=== PATIENT | female | born 1975 | race Caucasian/White ===

== ENCOUNTER 2016-12-06 21:44 | Inpatient (IN) | payer BC, OTHER ==
[2016-12-06 23:29] LABS: Hematocrit 40 % (35-47); Hemoglobin 13.2 g/dl (12.0-16.0); Mean Corpuscular HGB Conc 33 g/dl (31-36); Mean Corpuscular Hemoglobin 28 pg (27-31); Mean Corpuscular Volume 85 fL (80-97); Mean Platelet Volume 8 um3 (7.4-10.4); Red Blood Count 4.71 10^6/ul (4.0-5.4); Red Cell Distribution Width 15 % (10.5-15); White Blood Count 8.5 10^3/ul (3.5-10.8)
[2016-12-06 23:36] LABS: Urine Bacteria 1+ (Absent); Urine Bilirubin Negative (Negative); Urine Glucose Negative (Negative); Urine Nitrite Positive (Negative)
[2016-12-06 23:38] LABS: ALT 13 U/L (7-52); AST 20 U/L (13-39); Alkaline Phosphatase 85 U/L (34-104); Anion Gap 5 mmol/L (2-11); BUN/Creatinine Ratio 11.4 (8-20); Blood Urea Nitrogen 8 mg/dL (6-24); CO2 Carbon Dioxide 28 mmol/L (22-32); Calcium 9.4 mg/dL (8.6-10.3); Chloride 102 mmol/L (101-111); EGFR African American 117.5 (>60); EGFR Non-African American 91.3 (>60); Globulin 3.4 g/dL (2-4); Glucose 100 mg/dL (70-100); Potassium 4.5 mmol/L (3.5-5.0); Sodium 135 mmol/L (133-145); Total Protein 7.4 g/dL (6.4-8.9)
[2016-12-06 23:44] LABS: Acetaminophen < 15 mcg/mL; Alcohol < 10 mg/dL (<10); Salicylate < 2.50 mg/dL (<30)
[2016-12-06 23:46] LABS: Benzodiazepine Urine Screen None Detected (None Detect)
[2016-12-07] MEDS ORDERED: Al Hydrox/Mg Hydrox/Simet LIQ* 30 ML UDC PO PRN (07:43)
[2016-12-07] MEDS: Vitamin THERAPEUTIC TAB PO SCH (08:39)
[2016-12-07 14:19] LABS: Iron 57 ug/dL (50-212)
[2016-12-07] MEDS: Sertraline* 50 MG TAB PO SCH (15:40)
[2016-12-07 20:49] LABS: Vitamin B12 366 pg/mL (180-914)
[2016-12-07] MEDS ORDERED: traZODone TAB* 50 MG TAB PO SCH (21:00)
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
[2016-12-08] MEDS: Acetaminophen TAB* 325 MG PO PRN ×2 (04:42→18:30)
[2016-12-08] MEDS: Vitamin THERAPEUTIC TAB PO SCH (13:24)
[2016-12-08] MEDS: Sertraline* 50 MG TAB PO SCH (13:24)
--- NOTE | 2016-12-08 14:30 | PN ---
Subjective - Subjective Service Type: 04342 Hosp care 15 min low complexity Subjective: Patient continues to present as dysphoric and tearful. She reports poor concentration and low energy. She reports poor sleep last night due to physical complaints that awakened her. She describes headache, generalized neuropathic pain, nausea. She states that this was a typical episode and similar to what she has been experiencing. Patient reports anxiety is troublesome, especially at home. She reports she and her had a good visit over lunch and that he is supportive. She states he is generally supportive but also indifferent. She states they often argue at home about her need to clean and organize the home. Pamela endorses poor communication skills between the two of them. Objective - Appearance Appearance: Well Developed/Nourished, Other Dysmorphic Features: Yes Hygiene: Normal Grooming: Well Kept - Behavior Psychomotor Activities: Abnormal-Decreased - psychomotor retardation Exhibits Abnormal Movement: Yes - Attitude and Relatedness Attitude and Relatedness: Cooperative Eye Contact: Good - Speech Quality: Unpressured Latencies: Normal Quantity: Appropriate - Mood Patient's Decription of Mood: "Sad" - Affect Observed Affect: Depressed Affect Consistent with: Dysphoria - Thought Process Patient's Thought Process: Coherent, Goal Directed Thought Content: No Passive Wish, No Suicidal Planning, No Homicidal Ideation, No Paranoid Ideation - Sensorium Experiencing Hallucinations: No, Sensorium is Clear Type of Hallucinations: Visual: No, Auditory: No, Command: No - Level of Consciousness Level of Consciousness: Alert Orientation: Yes Intact, Yes Orientated to Time, Yes Orientated to Place, Yes Orientated to Person - Impulse Control Impulse Control: Intact - Insight and Judgement Insight and Judgement: Fair - Group Participation Particating in Group Activities: Yes - Medication Management Medication Management Adherence: Yes Assessment - Assessment Merits Inpatient Hospitalization: For Immediate Safety, To Initiate Treatment, For Ongoing Evaluation, For Discharge Planning Inpatient DSM-IV Dx: Major depressive d/o, moderate, recurrent with anxious distress Clinical Impression: Pamela is a 41yo female who presented to the ED with c/o increasingly depressed mood and recent parasuicidal behavior. She is agreeable to suggested medication changes and participating in unit programming. Will assess for effect and continue to monitor for mood and thought content. She is agreeable to referrals to outpatient services. Plan - Plan Treatment Plan: Name: PAMELA BROOKS Birthdate: 1975 [id number] Will increase sertraline to 100mg and add vit D supplement to target depressed mood. Will add gabapentin 100mg BID to target anxiety and diffuse neuropathic pain. Will change trazodone to prn for insomnia only. Continue supportive milieu and individual and group therapy. Decrease safety checks to q30 min and allow staff pass. Discharge planning to include individual and couples therapy sessions. Continued Medication Management: Different Medication Medications: Current Medications Acetaminophen (Tylenol Tab*) 650 mg PO Q4H PRN PRN Reason: PAIN or TEMP > 101 F Last Admin: 12/08/16 04:42 Dose: 650 mg Al Hydrox/Mg Hydrox/Simethicone (Maalox Plus*) 30 ml PO Q4H PRN PRN Reason: INDIGESTION Cholecalciferol (Vitamin D Tab*) 1,000 units PO DAILY [facility] Gabapentin (Neurontin Cap(*)) 100 mg PO BID KAPIL Multivitamins (Theragran Tab*) 1 tab PO DAILY KAPIL Last Admin: 12/08/16 13:24 Dose: 1 tab Sertraline HCl (Zoloft*) 100 mg PO DAILY KAPIL Trazodone HCl (Desyrel Tab*) 50 mg PO BEDTIME PRN PRN Reason: INSOMNIA - Discharge Plan Discharge Plan: Outpatient Follow Up Outpatient Program: [facility] private therapist
[2016-12-08] MEDS: traZODone TAB* 50 MG TAB PO PRN (20:41)
[2016-12-08] MEDS: Gabapentin CAP(*) 100 MG PO SCH (21:24)
[2016-12-09] MEDS: Cholecalciferol TAB* 1000 UNITS PO SCH (08:59)
[2016-12-09] MEDS: Vitamin THERAPEUTIC TAB PO SCH (08:59)
[2016-12-09] MEDS: Gabapentin CAP(*) 100 MG PO SCH ×2 (09:00→20:33)
[2016-12-09] MEDS: Sertraline* 50 MG TAB PO SCH (09:01)
--- NOTE | 2016-12-09 11:43 | PN ---
Subjective - Subjective Service Type: 87244 Hosp care 25 min moderate complexity Subjective: Patient noted to be visible in the milieu. She is social with peers and participates in groups and milieu activities. Patient engages the interview, initially with constricted affect and 1-2 word responses but later in the interview is full in affect and spontaneous in speech. Patient reports an improved mood today. When asked what contributed her improved mood, patient identifies the support of her who she reports visits twice daily. Patient reports she gained an improved perspective on what has led to her long stent of unemployment(procrastination) and how to overcome it. Patient reports good benefit from groups. She reports she is happy she presented to the ED. She reports she realized she needed a "time-out". Patient reports even after her called the police, she was able to "snow" them when they presented to her home after being called by her . Patient expresses insight that this ability to hide her issues isolates her from her support. Patient reports her family does not know about this admission and she reports she didnt inform them when admitted after her first suicide attempt 2 yrs ago by OD. Patient encouraged to openly communicate with loved ones and lean on their support. Patient reports she's planned to re-start yoga, daily walks, and is currently journaling as coping mechanisms. She understands her medical issues prohibit her from certain jobs, but she is more focused on finding and applying to those which are compatible with her current physical state. Objective - Appearance Appearance: Well Developed/Nourished Dysmorphic Features: No Hygiene: Normal Grooming: Fairly Well Kept - Behavior Psychomotor Activities: Normal Exhibits Abnormal Movement: No - Attitude and Relatedness Attitude and Relatedness: Cooperative Eye Contact: Fair - Speech Quality: Unpressured Latencies: Normal Quantity: Appropriate - Mood Patient's Decription of Mood: "Okay" - Affect Observed Affect: Constricted Affect Consistent with: Dysphoria - Thought Process Patient's Thought Process: Coherent Thought Content: No Passive Wish, No Suicidal Planning, No Homicidal Ideation, No Paranoid Ideation - Sensorium Experiencing Hallucinations: No, Sensorium is Clear Type of Hallucinations: Visual: No, Auditory: No, Command: No - Level of Consciousness Level of Consciousness: Alert Orientation: No Intact, No Orientated to Time, No Orientated to Place, No Orientated to Person - Impulse Control Impulse Control: Intact - Insight and Judgement Insight and Judgement: Fair - Group Participation Particating in Group Activities: Yes - Medication Management Medication Management Adherence: Yes Assessment - Assessment Merits Inpatient Hospitalization: For Immediate Safety, For Stabilization Inpatient DSM-IV Dx: Major depressive d/o, moderate, recurrent with anxious distress Plan - Plan Treatment Plan: Name: STEVEN BROOKS Birthdate: 1975 [id number] 1. Continue admission to [facility] for safety and symptom management. 2. Continue Zoloft at 100mg po qam started 12/08/16, with plan to uptitrate. 3. Per discussion of urine culture results, hospitalist carton wrapper recommends an Abx course of Cipro 250mg po BID for 5days. 4. Family meeting with patient, , SW and this provider to be scheduled. 5. Patient to continue group and milieu activity participation. Continued Medication Management: Start Medication Medications: Current Medications Acetaminophen (Tylenol Tab*) 650 mg PO Q4H PRN PRN Reason: PAIN or TEMP > 101 F Last Admin: 12/08/16 18:30 Dose: 650 mg Al Hydrox/Mg Hydrox/Simethicone (Maalox Plus*) 30 ml PO Q4H PRN PRN Reason: INDIGESTION Cholecalciferol (Vitamin D Tab*) 1,000 units PO DAILY [facility] Last Admin: 12/09/16 08:59 Dose: 1,000 units Gabapentin (Neurontin Cap(*)) 100 mg PO BID [facility] Last Admin: 12/09/16 09:00 Dose: 100 mg Multivitamins (Theragran Tab*) 1 tab PO DAILY [facility] Last Admin: 12/09/16 08:59 Dose: 1 tab Sertraline HCl (Zoloft*) 100 mg PO DAILY [facility] Last Admin: 12/09/16 09:01 Dose: 100 mg Trazodone HCl (Desyrel Tab*) 50 mg PO BEDTIME PRN PRN Reason: INSOMNIA Last Admin: 12/08/16 20:41 Dose: 50 mg - Discharge Plan Discharge Plan: Outpatient Follow Up Outpatient Program: Private Clinician(s)
--- NOTE | 2016-12-09 13:09 | PN ---
MHU: Group Therapy Note - Service Type Service Type: [id number] Group Psychotherapy - Cognitive Behavioral Group Therapy ( CBT):Patient was attentive and participatory in CBT programming this morning, and remained in good behavioral control. Patient expressed positive insights regarding relevant treatment interventions and goals.
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
[2016-12-09] MEDS: Ciprofloxacin TAB* 500 MG PO SCH (20:33)
[2016-12-09] MEDS: traZODone TAB* 50 MG TAB PO PRN (21:20)
[2016-12-10] MEDS: Sertraline* 50 MG TAB PO SCH (08:48)
[2016-12-10] MEDS: Gabapentin CAP(*) 100 MG PO SCH ×2 (08:49→20:46)
[2016-12-10] MEDS: Vitamin THERAPEUTIC TAB PO SCH (08:49)
[2016-12-10] MEDS: Cholecalciferol TAB* 1000 UNITS PO SCH (08:49)
[2016-12-10] MEDS: Ciprofloxacin TAB* 500 MG PO SCH ×2 (08:49→20:46)
--- NOTE | 2016-12-10 11:52 | PN ---
MHU: Group Therapy Note - Service Type Service Type: [id number] Group Psychotherapy - Cognitive Behavioral Group Therapy ( CBT):Patient was attentive and participatory in CBT programming this morning, and remained in good behavioral control. Patient expressed positive insights regarding relevant treatment interventions and goals.
--- NOTE | 2016-12-10 16:35 | PN ---
Subjective - Subjective Service Type: 59993 Hosp care 15 min low complexity Subjective: Patient noted to be visible in the milieu, social with peers, and participating in groups and milieu activities. Patient reports ongoing improvement in her mood on Zoloft. Today she has noticed increased symptoms of activation including nervous energy, mild tremor, and diminished concentration. Patient has no hx of davin or hypomania and davin screen is (-). Patient is amenable to stay with current dose of Zoloft to determine if her body will tolerate the new med. Patient informed the dose will not be uptitrated for the weekend as discussed. Patient continues to report increased motivation and ambition and reports ongoing benefit from groups. Patient denies SI/HI and AH/VH. Sleep and appetite are wnl. Objective - Appearance Appearance: Well Developed/Nourished Dysmorphic Features: No Hygiene: Normal Grooming: Well Kept - Behavior Psychomotor Activities: Normal Exhibits Abnormal Movement: No - Attitude and Relatedness Attitude and Relatedness: Cooperative Eye Contact: Good - Speech Quality: Unpressured Latencies: Normal Quantity: Appropriate - Mood Patient's Decription of Mood: "Okay" - Affect Observed Affect: Fair Affect Consistent with: Dysphoria - Thought Process Patient's Thought Process: Coherent Thought Content: No Passive Wish, No Suicidal Planning, No Homicidal Ideation, No Paranoid Ideation - Sensorium Experiencing Hallucinations: No, Sensorium is Clear Type of Hallucinations: Visual: No, Auditory: No, Command: No - Level of Consciousness Level of Consciousness: Alert Orientation: Yes Intact, Yes Orientated to Time, Yes Orientated to Place, Yes Orientated to Person - Impulse Control Impulse Control: Intact - Insight and Judgement Insight and Judgement: Fair - Group Participation Particating in Group Activities: Yes - Medication Management Medication Management Adherence: Yes Assessment - Assessment Merits Inpatient Hospitalization: For Immediate Safety, For Stabilization Inpatient DSM-IV Dx: Major depressive d/o, moderate, recurrent with anxious distress Plan - Plan Treatment Plan: Name: STEVEN BROOKS Birthdate: 1975 [id number] 1. Continue admission to [facility] for safety and symptom management. 2. Continue Zoloft at 100mg po qam started 12/08/16, will not up-titrate as patient reporting some symptoms of activation but believes she can tolerate them while her body adjusts to the med. 3. Continue Abx course of Cipro 250mg po BID for 5days for UTI. 4. Family meeting with patient, , SW and this provider scheduled for tomorrow. 5. Patient to continue group and milieu activity participation. Medications: Current Medications Acetaminophen (Tylenol Tab*) 650 mg PO Q4H PRN PRN Reason: PAIN or TEMP > 101 F Last Admin: 12/08/16 18:30 Dose: 650 mg Al Hydrox/Mg Hydrox/Simethicone (Maalox Plus*) 30 ml PO Q4H PRN PRN Reason: INDIGESTION Cholecalciferol (Vitamin D Tab*) 1,000 units PO DAILY [facility] Last Admin: 12/10/16 08:49 Dose: 1,000 units Ciprofloxacin (Cipro Tab*) 500 mg PO Q12HR [facility] Stop: 12/13/16 21:00 Last Admin: 12/10/16 08:49 Dose: 500 mg Gabapentin (Neurontin Cap(*)) 100 mg PO BID [facility] Last Admin: 12/10/16 08:49 Dose: 100 mg Multivitamins (Theragran Tab*) 1 tab PO DAILY [facility] Last Admin: 12/10/16 08:49 Dose: 1 tab Sertraline HCl (Zoloft*) 100 mg PO DAILY [facility] Last Admin: 12/10/16 08:48 Dose: 100 mg Trazodone HCl (Desyrel Tab*) 50 mg PO BEDTIME PRN PRN Reason: INSOMNIA Last Admin: 12/09/16 21:20 Dose: 50 mg - Discharge Plan Discharge Plan: Outpatient Follow Up
[2016-12-10] MEDS: traZODone TAB* 50 MG TAB PO PRN (20:46)
[2016-12-11] MEDS: Ciprofloxacin TAB* 500 MG PO SCH ×2 (08:35→20:26)
[2016-12-11] MEDS: Cholecalciferol TAB* 1000 UNITS PO SCH (08:35)
[2016-12-11] MEDS: Gabapentin CAP(*) 100 MG PO SCH ×2 (08:35→20:27)
[2016-12-11] MEDS: Vitamin THERAPEUTIC TAB PO SCH (08:36)
[2016-12-11] MEDS: Sertraline* 50 MG TAB PO SCH (08:36)
--- NOTE | 2016-12-11 13:45 | PN ---
Subjective - Subjective Service Type: [id number] Hosp care 15 min low complexity Subjective: Patient seen with , SW and this provider for family meeting. Patient is med compliant, but continues to report s/e's on Zoloft including ongoing mild tremor, nervous energy, increased anxiety, and new nausea today. Patient and again educated on activation and GI s/ e profile of Zoloft. Decision made to d/c Zoloft and start Prozac at 20mg. Patient and SW discussed psychiatry and psychotherapy appts made. Patient and discussed their need to communicate more regarding mood, issues with finances, and patient's inclination to be prideful and keep her issues to herself when supportive family could be leaned on. Patient discussed new drive to focus on suitable job search for compatible jobs with her new medical limitations s/p surgery. Patient's reiterated his support for patient to work as much as she is able and not feel he is mad with her. Patient will stay the weekend for ongoing therapy and will tentatively discharge on Wednesday. Patient denies SI/HI and AH/VH. Sleep and appetite are wnl. Objective - Appearance Appearance: Well Developed/Nourished Dysmorphic Features: No Hygiene: Normal Grooming: Well Kept - Behavior Psychomotor Activities: Normal Exhibits Abnormal Movement: No - Attitude and Relatedness Attitude and Relatedness: Cooperative Eye Contact: Fair - Speech Quality: Unpressured Latencies: Normal Quantity: Appropriate - Mood Patient's Decription of Mood: "Anxious" - Affect Observed Affect: Tense Affect Consistent with: Dysphoria - Thought Process Patient's Thought Process: Coherent Thought Content: No Passive Wish, No Suicidal Planning, No Homicidal Ideation, No Paranoid Ideation - Sensorium Experiencing Hallucinations: No, Sensorium is Clear Type of Hallucinations: Visual: No, Auditory: No, Command: No - Level of Consciousness Level of Consciousness: Alert Orientation: Yes Intact, Yes Orientated to Time, Yes Orientated to Place, Yes Orientated to Person - Impulse Control Impulse Control: Intact - Insight and Judgement Insight and Judgement: Fair - Group Participation Particating in Group Activities: Yes - Medication Management Medication Management Adherence: Yes Assessment - Assessment Inpatient DSM-IV Dx: Major depressive d/o, moderate, recurrent with anxious distress Plan - Plan Treatment Plan: Name: STEVEN BROOKS Birthdate: 1975 [id number] 1. Continue admission to [facility] for safety and symptom management. 2. Continue Zoloft at 100mg po qam started 12/08/16, will not up-titrate as patient reporting some symptoms of activation but believes she can tolerate them while her body adjusts to the med. 3. Continue Abx course of Cipro 250mg po BID for 5days for UTI. 4. Family meeting with patient, , SW and this provider scheduled for tomorrow. 5. Patient to continue group and milieu activity participation. Medications: Current Medications Acetaminophen (Tylenol Tab*) 650 mg PO Q4H PRN PRN Reason: PAIN or TEMP > 101 F Last Admin: 12/08/16 18:30 Dose: 650 mg Al Hydrox/Mg Hydrox/Simethicone (Maalox Plus*) 30 ml PO Q4H PRN PRN Reason: INDIGESTION Cholecalciferol (Vitamin D Tab*) 1,000 units PO DAILY [facility] Last Admin: 12/11/16 08:35 Dose: 1,000 units Ciprofloxacin (Cipro Tab*) 500 mg PO Q12HR [facility] Stop: 12/13/16 21:00 Last Admin: 12/11/16 08:35 Dose: 500 mg Docusate Sodium (Colace Cap*) 100 mg PO BID [facility] Fluoxetine HCl (Prozac Cap*) 20 mg PO DAILY [facility] Gabapentin (Neurontin Cap(*)) 100 mg PO BID [facility] Last Admin: 12/11/16 08:35 Dose: 100 mg Multivitamins (Theragran Tab*) 1 tab PO DAILY [facility] Last Admin: 12/11/16 08:36 Dose: 1 tab Trazodone HCl (Desyrel Tab*) 50 mg PO BEDTIME PRN PRN Reason: INSOMNIA Last Admin: 12/10/16 20:46 Dose: 50 mg
--- NOTE | 2016-12-11 13:55 | PN ---
[facility]: Group Therapy Note - Service Type Service Type: [id number] Group Psychotherapy - Cognitive Behavioral Group Therapy ( CBT):Patient was attentive and participatory in CBT programming this morning, and remained in good behavioral control. Patient expressed positive insights regarding relevant treatment interventions and goals.
[2016-12-11] MEDS: Docusate CAP* 100 MG PO SCH (20:26)
[2016-12-11] MEDS: traZODone TAB* 50 MG TAB PO PRN (20:27)
[2016-12-12] MEDS: Ciprofloxacin TAB* 500 MG PO SCH ×2 (09:00→20:36)
[2016-12-12] MEDS: Cholecalciferol TAB* 1000 UNITS PO SCH (09:01)
[2016-12-12] MEDS: Gabapentin CAP(*) 100 MG PO SCH ×2 (09:01→20:36)
[2016-12-12] MEDS: Docusate CAP* 100 MG PO SCH ×2 (09:01→20:36)
[2016-12-12] MEDS: FLUoxetine CAP* 20 MG PO SCH (09:01)
[2016-12-12] MEDS: Vitamin THERAPEUTIC TAB PO SCH (09:01)
[2016-12-12] MEDS: traZODone TAB* 50 MG TAB PO PRN (21:55)
[2016-12-13] MEDS: Gabapentin CAP(*) 100 MG PO SCH ×2 (08:41→20:35)
[2016-12-13] MEDS: Ciprofloxacin TAB* 500 MG PO SCH ×2 (08:41→20:35)
[2016-12-13] MEDS: FLUoxetine CAP* 20 MG PO SCH (08:41)
[2016-12-13] MEDS: Vitamin THERAPEUTIC TAB PO SCH (08:41)
[2016-12-13] MEDS: Docusate CAP* 100 MG PO SCH ×2 (08:41→20:35)
[2016-12-13] MEDS: Cholecalciferol TAB* 1000 UNITS PO SCH (08:41)
--- NOTE | 2016-12-13 14:12 | PN ---
Subjective - Subjective Service Type: 27733 Hosp care 15 min low complexity Subjective: Pamela was seen in the presence of her . Pamela reports a significant improvement of depression with Prozac and hasn't been suicidal anymore. Sleep and appetite is much better. Denies hallucinations or delusions as well. Objective - Appearance Appearance: Thin Framed Dysmorphic Features: No Hygiene: Normal Grooming: Fairly Well Kept - Behavior Psychomotor Activities: Normal Exhibits Abnormal Movement: No - Attitude and Relatedness Attitude and Relatedness: Appropriate Eye Contact: Good - Speech Quality: Unpressured Latencies: Normal Quantity: Appropriate - Mood Patient's Decription of Mood: "Okay" - Affect Observed Affect: Constricted - Thought Process Patient's Thought Process: Coherent, Goal Directed Thought Content: No Passive Wish, No Suicidal Planning, No Homicidal Ideation, No Paranoid Ideation - Sensorium Experiencing Hallucinations: No, Sensorium is Clear Type of Hallucinations: Visual: No, Auditory: No, Command: No - Level of Consciousness Level of Consciousness: Alert Orientation: Yes Intact, Yes Orientated to Time, Yes Orientated to Place, Yes Orientated to Person - Impulse Control Impulse Control: Intact - Insight and Judgement Insight and Judgement: Fair - Group Participation Particating in Group Activities: Yes - Medication Management Medication Management Adherence: Yes Assessment - Assessment Merits Inpatient Hospitalization: Consolidate Improvements, Pending Safe DC Plan Inpatient DSM-IV Dx: Major depressive d/o, moderate, recurrent with anxious distress Clinical Impression: Pamela appears to be doing well on current treatments and may be discharged soon if continues the trend. Plan - Plan Treatment Plan: Name: PAMELA BROOKS Birthdate: 1975 [id number] Continued Medication Management: Continue Outpt Medication Medications: Current Medications Acetaminophen (Tylenol Tab*) 650 mg PO Q4H PRN PRN Reason: PAIN or TEMP > 101 F Last Admin: 12/08/16 18:30 Dose: 650 mg Al Hydrox/Mg Hydrox/Simethicone (Maalox Plus*) 30 ml PO Q4H PRN PRN Reason: INDIGESTION Cholecalciferol (Vitamin D Tab*) 1,000 units PO DAILY [facility] Last Admin: 12/13/16 08:41 Dose: 1,000 units Ciprofloxacin (Cipro Tab*) 500 mg PO Q12HR [facility] Stop: 12/13/16 21:00 Last Admin: 12/13/16 08:41 Dose: 500 mg Docusate Sodium (Colace Cap*) 100 mg PO BID [facility] Last Admin: 12/13/16 08:41 Dose: 100 mg Fluoxetine HCl (Prozac Cap*) 20 mg PO DAILY [facility] Last Admin: 12/13/16 08:41 Dose: 20 mg Gabapentin (Neurontin Cap(*)) 100 mg PO BID [facility] Last Admin: 12/13/16 08:41 Dose: 100 mg Multivitamins (Theragran Tab*) 1 tab PO DAILY [facility] Last Admin: 12/13/16 08:41 Dose: 1 tab Trazodone HCl (Desyrel Tab*) 50 mg PO BEDTIME PRN PRN Reason: INSOMNIA Last Admin: 12/12/16 21:55 Dose: 50 mg - Discharge Plan Discharge Plan: Outpatient Follow Up Outpatient Program: [facility]
[2016-12-13] MEDS: traZODone TAB* 50 MG TAB PO PRN (21:15)
[2016-12-14 08:17] VITALS: BP 112/77
[2016-12-14] MEDS: Gabapentin CAP(*) 100 MG PO SCH (08:57)
[2016-12-14] MEDS: FLUoxetine CAP* 20 MG PO SCH (08:57)
[2016-12-14] MEDS: Vitamin THERAPEUTIC TAB PO SCH (08:57)
[2016-12-14] MEDS: Docusate CAP* 100 MG PO SCH (08:58)
[2016-12-14] MEDS: Cholecalciferol TAB* 1000 UNITS PO SCH (08:58)
--- NOTE | 2016-12-14 14:25 | DS ---
Subjective - Subjective Service Types: [id number] Hosp DC Day Mgmt simple under 30 min Treatment Course & Assessment Inpatient DSM-IV Dx: Major depressive d/o, moderate, recurrent with anxious distress Discharge Planning - Discharge Planning Medications: Current Medications Acetaminophen (Tylenol Tab*) 650 mg PO Q4H PRN PRN Reason: PAIN or TEMP > 101 F Last Admin: 12/08/16 18:30 Dose: 650 mg Al Hydrox/Mg Hydrox/Simethicone (Maalox Plus*) 30 ml PO Q4H PRN PRN Reason: INDIGESTION Cholecalciferol (Vitamin D Tab*) 1,000 units PO DAILY [facility] Last Admin: 12/14/16 08:58 Dose: 1,000 units Docusate Sodium (Colace Cap*) 100 mg PO BID [facility] Last Admin: 12/14/16 08:58 Dose: 100 mg Fluoxetine HCl (Prozac Cap*) 20 mg PO DAILY [facility] Last Admin: 12/14/16 08:57 Dose: 20 mg Gabapentin (Neurontin Cap(*)) 100 mg PO BID [facility] Last Admin: 12/14/16 08:57 Dose: 100 mg Multivitamins (Theragran Tab*) 1 tab PO DAILY [facility] Last Admin: 12/14/16 08:57 Dose: 1 tab Trazodone HCl (Desyrel Tab*) 50 mg PO BEDTIME PRN PRN Reason: INSOMNIA Last Admin: 12/13/16 21:15 Dose: 50 mg Discharge Planning: Prescriptions provided for discharge [] Yes [] No Follow up care details as per social work arrangements. Patient response to discharge plan: [] eager for discharge [] agreeable with discharge plan [] ambivalent about discharge [] disagrees with discharge today
[2016-12-14] MEDS ORDERED: Magnesium CITRATE* 300 ML BTL PO ONE (14:51)
== END 2016-12-14 17:00 | disposition home or self-care (01) | DRG 751 ==
LOC: ED 21:44 → BSU 12-07 03:00
PROVIDERS: ADMIT Psychiatry & Neurology Psychiatry; ATTEND Psychiatry & Neurology Psychiatry
DX: F33.1 Major depressive disorder, recurrent, moderate (principal); R45.851 Suicidal ideations; R00.1 Bradycardia, unspecified; F41.8 Other specified anxiety disorders; D51.0 Vitamin B12 deficiency anemia due to intrinsic factor deficiency; Z81.8 Family history of other mental and behavioral disorders; Z98.84 Bariatric surgery status
CPT/HCPCS: 36415; 80053; 80307; 80320; 80329; 81003; 81015; 82306; 82607; 83540; 84443; 85025; 87077; 87086; 87186; 90853; 96102; 99222; 99231; 99232; 99238; 99285; A9270-GY; G0480